=== PATIENT | male | born 1990 | race African-American/Black ===

== ENCOUNTER 2016-11-27 08:40 | Emergency (ER) | payer OTHER, BC ==
[2016-11-27 08:52] VITALS: TEMP 97.5; BMI 39.5
[2016-11-27] MEDS ORDERED: KETOROLAC TROMETHAMINE 60 MG/2 ML VIAL ONE (09:23)
--- NOTE | 2016-11-27 09:27 | PDOC ---
History of Present Illness - General Chief Complaint: Pain, Acute Stated Complaint: LT TESTICULAR PAIN Time Seen by Provider: 11/27/16 09:10 History Source: Patient Exam Limitations: No Limitations - History of Present Illness Initial Comments: 11/27/16 09:22 Patient came to emergency department with complaints of left testicle with radiation into his left groin pain that was acute onset this morning at 3:00 in the morning. Was able to sleep for a few hours, but when he woke up approximately 6:30, had excessive difficulty walking and was a tearful kind of pain. Has taken no medications for relief. had lifted some heavy boxes with a hand truck down 3 flights of stairs this morning but did not feel any acute pain without movement. pain occurred a few hours after that exercise. also was at the park the day before playing with his kids with excessive vigorous activity. Denies any urinary complaints however has had recent fullness to his bladder without dysuria, frequency, pain or burning with void. Denies any penile discharge has one partner, mother of his child who has no symptoms. Denies nausea vomiting diarrhea or constipation, no changes in bowels. No history of testicular issue or hernia. 11/27/16 09:24 Occurred: reports: this morning Severity: reports: mild Pain Location: reports: none Modifying Factors: improves with: None Loss of Consciousness: no loss of consciousness Associated Symptoms (Fall): denies symptoms, muscle spasms Past History - Travel Traveled outside of the country in the last 30 days: No Close contact w/someone who was outside of country & ill: No - Past Medical History Allergies/Adverse Reactions: Allergies Allergy/AdvReac Type Severity Reaction Status Date / Time No Known Allergies Allergy Verified 11/27/16 08:48 Home Medications: Ambulatory Orders Oxycodone HCl/Acetaminophen [Percocet 5-325 mg Tablet -] 1 - 2 tab PO Q4H PRN # 7 tablet MDD 4 11/27/16 Other medical history: THALASSEMIA - Psycho/Social/Smoking Cessation Hx Suicidal Ideation: No Smoking History: Current every day smoker Have you smoked in the past 12 months: Yes Number of Cigarettes Smoked Daily: 5 Information on smoking cessation initiated: No Trauma Specific PMHX - Complaint Specific PMHX Back Injury: No Neck Injury: No Review of Systems - Review of Systems Able to Perform ROS?: Yes Is the patient limited Swazi proficient: Yes Constitutional: Yes: Symptoms Reported, See HPI, Malaise. No: Chills, Fever HEENTM: No: Symptoms Reported Respiratory: No: Symptoms reported Musculoskeletal: Yes: Symptoms Reported, See HPI, Muscle Pain (primarily left groin) Integumentary: Yes: See HPI. No: Symptoms Reported, Bruising Neurological: Yes: See HPI. No: Symptoms reported, Headache, Numbness *Physical Exam - Vital Signs Last Vital Signs Temp Pulse Resp BP Pulse Ox 97.5 F L 78 19 153/100 97 11/27/16 08:48 11/27/16 08:48 11/27/16 08:48 11/27/16 08:48 11/27/16 08:48 - Physical Exam General Appearance: Yes: Appropriately Dressed, Apparent Distress HEENT: positive: JENNY, Normal ENT Inspection, Normal Voice, TMs Normal, Pharynx Normal Neck: positive: Supple. negative: Tender Respiratory/Chest: positive: Lungs Clear, Normal Breath Sounds Cardiovascular: positive: Regular Rhythm, Regular Rate Gastrointestinal/Abdominal: positive: Normal Bowel Sounds, Soft. negative: Tender, Organomegaly Male Genitalia: positive: normal genitalia. negative: testicular tenderness ( both testes descended, without tenderness, masses, or any evidence of torsion. ), testicular mass, epididymus tender, inguinal hernia (no inguinal hernias appreciated bilaterally), CVAT, hematuria Extremity: positive: Normal Capillary Refill, Normal Inspection, Normal Range of Motion (able to lift leg. And hold position, but this activity reproduces pain at groin and ligamentous area. 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 Medicated with Toradol 60 mg IM Medical Decision Making - Medical Decision Making 11/27/16 10:59 Updated pateint and family to results/ all negative for acut pathology. Will D/ C with #7 percocet tabs PRN. *DC/Admit/Observation/Transfer Diagnosis at time of Disposition: Strain of left inguinal muscle Qualifiers: Encounter type: initial encounter Qualified Code(s): S39.013A - Strain of muscle, fascia and tendon of pelvis, initial encounter - Discharge Dispostion Disposition: HOME Condition at time of disposition: Stable Admit: No - Prescriptions Prescriptions: Oxycodone HCl/Acetaminophen [Percocet 5-325 mg Tablet -] 1 - 2 tab PO Q4H PRN # 7 tablet MDD 4 PRN Reason: Pain - Referrals Referrals: Adam Campos MD [Staff Physician] - - Patient Instructions Printed Discharge Instructions: DI for Groin Strain Additional Instructions: Rest, ice to area on and off for 15 minutes 4-6 times a day Avoid heavy lifting or exercise until pain and swelling is resolved or until further directed Keep area highly elevated to reduce swelling Use splints/Forrest wrap as directed Followup with orthopedist in one to 2 days if not improving, if significantly improved may wait one week for followup with orthopedist May use ibuprofen 2-200 mg tablets every 6 hours as needed for pain May take 1 or 2 percocet for severe pain/ understanding will make dizzuy and sleepy - Post Discharge Activity Work/School Note: Back to Work
[2016-11-27] MEDS: KETOROLAC TROMETHAMINE 60 MG/2 ML VIAL IM ONE (09:28)
[2016-11-27 09:39] LABS: URINE APPEARANCE CLEAR; URINE BILIRUBIN NEGATIVE (NEGATIVE); URINE BLOOD NEGATIVE (NEGATIVE); URINE COLOR YELLOW; URINE GLUCOSE (UA) NEGATIVE (NEGATIVE); URINE KETONE TRACE (NEGATIVE); URINE LEUK ESTERASE NEGATIVE (NEGATIVE); URINE NITRITE NEGATIVE (NEGATIVE); URINE PROTEIN NEGATIVE (NEGATIVE); URINE UROBILINOGEN NEGATIVE E.U./dl (0.2-1.0)
[2016-11-27 10:58] VITALS: BP 143/92; PULSE 68
--- NOTE | 2016-11-27 11:07 | PDOC ---
*Physical Exam - Vital Signs Last Vital Signs Temp Pulse Resp BP Pulse Ox 97.5 F L 68 17 143/92 98 11/27/16 08:48 11/27/16 10:57 11/27/16 10:57 11/27/16 10:57 11/27/16 10:57 ED Treatment Course - ADDITIONAL ORDERS Additional order review: Laboratory Results 11/27/16 09:31 Urine Color Yellow Urine Appearance Clear Urine pH 5.0 Urine Protein Negative Urine Glucose (UA) Negative Urine Ketones Trace H Urine Blood Negative Urine Nitrite Negative Urine Bilirubin Negative Urine Urobilinogen Negative Ur Leukocyte Esterase Negative - RADIOLOGY Radiology Studies Ordered: Category Date Time Status SCROTUM AND CONTENTS US [US] Stat Ultrasound 11/27/16 09:13 Completed - Medications Given in the ED: ED Medications Discontinued Medications Generic Name Dose Route Start Last Admin Trade Name Freq PRN Reason Stop Dose Admin Ketorolac Tromethamine 60 mg 11/27/16 09:22 11/27/16 09:28 Toradol Injection - IM 11/27/16 09:23 60 mg ONCE ONE Administration Medical Decision Making - Medical Decision Making 11/27/16 11:07 Patient seen and evaluated with the nurse practitioner. I agree with the overall evaluation, assessment, and management with the following summary of visit: 26-year-old male with groin pain, normal exam, and normal urinalysis and scrotal ultrasound. Agree with management as outlined. *DC/Admit/Observation/Transfer Diagnosis at time of Disposition: Strain of left inguinal muscle Qualifiers: Encounter type: initial encounter Qualified Code(s): S39.013A - Strain of muscle, fascia and tendon of pelvis, initial encounter - Discharge Dispostion Disposition: HOME Condition at time of disposition: Stable - Prescriptions Prescriptions: Oxycodone HCl/Acetaminophen [Percocet 5-325 mg Tablet -] 1 - 2 tab PO Q4H PRN # 7 tablet MDD 4 PRN Reason: Pain - Referrals Referrals: Adam Campos MD [Staff Physician] - - Patient Instructions Printed Discharge Instructions: DI for Groin Strain Additional Instructions: Rest, ice to area on and off for 15 minutes 4-6 times a day Avoid heavy lifting or exercise until pain and swelling is resolved or until further directed Keep area highly elevated to reduce swelling Use splints/Forrest wrap as directed Followup with orthopedist in one to 2 days if not improving, if significantly improved may wait one week for followup with orthopedist May use ibuprofen 2-200 mg tablets every 6 hours as needed for pain May take 1 or 2 percocet for severe pain/ understanding will make dizzuy and sleepy - Post Discharge Activity Work/School Note: Back to Work
== END 2016-11-27 11:08 | disposition home or self-care (01) ==
LOC: JER 08:40
PROC: 3E0233Z Introduction of Anti-inflammatory into Muscle, Percutaneous Approach (ICD-10-PCS; principal; 2016-11-27)
DX: S39.013A Strain of muscle, fascia and tendon of pelvis, initial encounter (principal); X58.XXXA Exposure to other specified factors, initial encounter; Y93.89 Activity, other specified; Y92.9 Unspecified place or not applicable
CPT/HCPCS: 76870-TC; 81003; 99282-25